=== PATIENT | male | born 1945 | race Caucasian/White ===

== ENCOUNTER 2021-05-12 08:46 | Emergency (ER) | payer MEDICARE, BC ==
[2021-05-12] MEDS ORDERED: Ondansetron 4 MG/2 ML SDV IVPUSH ONE (09:13)
[2021-05-12] MEDS ORDERED: Lactated Ringers 1,000 ML IV ONE (09:13)
[2021-05-12] MEDS: Sodium Chloride 0.9% 10 ML Syringe FLUSH PRN ×3 (09:33→10:51)
[2021-05-12 09:52] LABS: CHLORIDE,CL 101 mmol/L (98-107); SODIUM,NA 135 mmol/L (136-145)
[2021-05-12 09:53] LABS: ANION GAP 11.5 meq/L (7-15)
--- NOTE | 2021-05-12 10:17 | EDM.PDOC ---
ED HPI GENERAL MEDICAL PROBLEM - General Chief Complaint: General Stated Complaint: COVID, nausea, fevers, fatigue Time Seen by Provider: 05/12/21 09:12 Source of Information: Reports: Patient - History of Present Illness INITIAL COMMENTS - FREE TEXT/NARRATIVE: Vance is a 75 y/o male who comes to the ER with complaints of GI upset. He had a +COVID test on 04-30-2021, but had sx a few days prior. He is pretty sure he got the virus from his grandkids as he watched them the Wednesday before. He has been home managing his symptoms, but the last couple days he has had a an upset stomach and nausea, no vomiting, but lots of diarrhea. Reports if he eats, anything goes right through him. No fever. He has been congested with lots of nasal drainage and only coughing when the drainage runs down the back of his throat. - Related Data Allergies Allergy/AdvReac Type Severity Reaction Status Date / Time No Known Allergies Allergy Verified 05/12/21 08:47 Home Meds: Home Meds Finasteride [Proscar] 1 tab PO BEDTIME 05/12/21 [History] Naproxen Sodium [Aleve] 1 tab PO BEDTIME PRN 05/12/21 [History] Ondansetron [Ondansetron ODT] 4 mg PO Q6H PRN #30 tab.rapdis 05/12/21 [Rx] Terazosin [Hytrin] 2 cap PO BEDTIME 05/12/21 [History] Past Medical History Genitourinary History: Reports: Prostate Disorder - Past Surgical History Musculoskeletal Surgical History: Reports: Hip Replacement Social & Family History - Tobacco Use Tobacco Use Status *Q: Former Tobacco User Used Tobacco, but Quit: Yes Month/Year Tobacco Last Used: 1983 Second Hand Smoke Exposure: No - Caffeine Use Caffeine Use: Reports: Coffee - Recreational Drug Use Recreational Drug Use: No ED ROS GENERAL - Review of Systems Review Of Systems: See Below Constitutional: Reports: Malaise, Fatigue HEENT: Reports: Other (Nasal drainage) Respiratory: Reports: Cough (occasional) Cardiovascular: Reports: No Symptoms Endocrine: Reports: No Symptoms GI/Abdominal: Reports: Abdominal Pain, Diarrhea, Decreased Appetite, Nausea : Reports: No Symptoms Musculoskeletal: Reports: No Symptoms Skin: Reports: No Symptoms Neurological: Reports: No Symptoms Psychiatric: Reports: No Symptoms Hematologic/Lymphatic: Reports: No Symptoms Immunologic: Reports: No Symptoms ED EXAM, GENERAL - Physical Exam Exam: See Below General Appearance: Alert, WD/WN, No Apparent Distress, Other (Elderly male, loo ks pretty good.) Eye Exam: Bilateral Eye: PERRL Ears: Normal External Exam, Normal Canal, Hearing Grossly Normal Nose: Normal Inspection, Normal Mucosa Throat/Mouth: Normal Inspection, Normal Lips, Normal Voice Head: Atraumatic, Normocephalic Neck: Normal Inspection, Supple Respiratory/Chest: No Respiratory Distress Cardiovascular: Normal Peripheral Pulses, Regular Rate, Rhythm, No Murmur GI/Abdominal: Normal Bowel Sounds, Soft, Non-Tender (Male) Exam: Deferred Rectal (Males) Exam: Deferred Back Exam: Normal Inspection Extremities: Normal Inspection, Normal Range of Motion, No Pedal Edema, Normal Capillary Refill Neurological: Alert, Oriented, CN II-XII Intact, Normal Cognition, Normal Gait Psychiatric: Normal Affect, Normal Mood Skin Exam: Warm, Dry, Intact, Normal Color Lymphatic: No Adenopathy Course - Vital Signs Text/Narrative:: 09 The patient was seen by the GLOBAL POSITION SYSTEM TECHNICIAN. Labs and CXR ordered. He was given a liter of LR and Zofran 4mg IVP. 1003 CXR reviewed. Note Mg=1.7, will given MagSO4 1gm IVP now along with IV fluids. CBC WBC=3.8, Aet=907. CMP Kxlgym=058, Manager Exchange=1.23, Kgjdkvl=211. UA pending. Labs overall stable and consistent with COVID presentation. 1045 Still nauseated, Compazine 10mg IVP ordered. IV fluids continue along with Magnesium. Will continue IV fluids until pt can void. 1225 UA reviewed. Patient feeling better now. Second liter of IV fluids infusing, but he has voided twice so will d/c. GLOBAL POSITION SYSTEM TECHNICIAN discussed patient eligibility for Monoclonal Antibodies, due to older age (>65 years of age) and he declines at this time. Patient is ready to go home to rest. [facility]. Written instructions were given and he left the ER in stable condition. Last Recorded V/S: Last Vital Signs Temp 37.0 C 05/12/21 08:52 Pulse 82 05/12/21 08:52 Resp 24 H 05/12/21 08:52 BP 147/92 H 05/12/21 08:52 Pulse Ox 96 05/12/21 08:52 - Orders/Labs/Meds Orders: Active Orders 24 hr Category Date Time Status Chest 1V Frontal [CR] Stat Exams 05/12/21 09:13 Ordered UA RFX KAITLIN AND CULT IF INDIC [URIN] Stat Lab 05/12/21 09:13 Ordered Lactated Ringers [Ringers, Lactated] 1,000 ml Med 05/12/21 09:13 Ordered IV .BOLUS Sodium Chloride 0.9% [Saline Flush] Med 05/12/21 09:13 Ordered 10 ml FLUSH ASDIRECTED PRN Saline Lock Insert [OM.PC] Stat Oth 05/12/21 09:13 Ordered Medication Orders Lactated Ringer's (Ringers, Lactated) 1,000 mls @ 999 mls/hr IV .BOLUS ONE Stop: 05/12/21 10:13 Last Admin: 05/12/21 09:33 Dose: 999 mls/hr Documented by: HEIDI Sodium Chloride (Sodium Chloride 0.9% 10 Ml Syringe) 10 ml FLUSH ASDIRECTED PRN PRN Reason: Keep Vein Open Last Admin: 05/12/21 09:33 Dose: 10 ml Documented by: HEIDI Labs: Laboratory Tests 05/12/21 05/12/21 Range/Units 09:25 09:25 WBC 3.8 L (4.0-10.2) K/uL RBC 4.56 (4.33-5.41) M/uL Hgb 14.0 (13.1-16.8) g/dL Hct 39.7 (39.0-49.0) % MCV 87.1 (84.0-98.0) fL MCH 30.7 (28.2-33.3) pg MCHC 35.3 (31.7-36.0) g/dL RDW 12.9 (11.2-14.1) % Plt Count 118 L (150-350) K/uL Neut % (Auto) 70.9 (45.0-80.0) % Lymph % (Auto) 19.0 (10.0-50.0) % [place] % (Auto) 9.5 (2.0-14.0) % Eos % (Auto) 0.3 (0.0-5.0) % Baso % (Auto) 0.3 (0.0-2.0) % Neut # (Auto) 2.68 (1.40-7.00) K/uL Lymph # (Auto) 0.72 (0.50-3.50) K/uL [place] # (Auto) 0.36 (0.00-1.00) K/uL Eos # (Auto) 0.01 (0.00-0.50) K/uL Baso # (Auto) 0.01 (0.00-0.20) K/uL Sodium 135 L (136-145) mmol/L Potassium 4.2 (3.5-5.1) mmol/L Chloride 101 (98-107) mmol/L Carbon Dioxide 26.7 (21.0-32.0) mmol/L Anion Gap 11.5 (7-15) meq/L BUN 15 (7-18) mg/dL Creatinine 1.23 H (0.51-1.17) mg/dL Est Cr Clr Drug Dosing TNP Estimated GFR (MDRD) 57 mL/min Glucose 110 H (70-99) mg/dL Calcium 8.3 L (8.5-10.1) mg/dL Magnesium 1.7 L (1.8-2.4) mg/dL Total Bilirubin 0.5 (0.2-1.0) mg/dL AST 23 (15-37) U/L ALT 26 (12-78) U/L Alkaline Phosphatase 72 (46-116) IU/L Total Protein 6.6 (6.4-8.2) g/dL Albumin 3.3 L (3.4-5.0) g/dL Amylase 51 (25-115) U/L Lipase 142 (73-393) U/L Meds: Medications Generic Name Dose Route Start Last Admin Trade Name Freq PRN Reason Stop Dose Admin Lactated Ringer's 1,000 mls @ 999 mls/hr 05/12/21 09:13 05/12/21 09:33 Ringers, Lactated IV 05/12/21 10:13 999 mls/hr .BOLUS ONE Administration Sodium Chloride 10 ml 05/12/21 09:13 05/12/21 09:33 Sodium Chloride 0.9% 10 Ml Syringe FLUSH 10 ml ASDIRECTED PRN Administration Keep Vein Open Discontinued Medications Generic Name Dose Route Start Last Admin Trade Name Lucius PRN Reason Stop Dose Admin Ondansetron HCl 4 mg 05/12/21 09:13 05/12/21 09:33 Ondansetron 4 Mg/2 Ml Sdv IVPUSH 05/12/21 09:14 4 mg ONETIME ONE Administration - Radiology Interpretation Free Text/Narrative:: XR Chest 1V-some perihilar thickening in the right lung and blurred cardiac silhouette (See final report) Departure - Departure Time of Disposition: 12:28 Disposition: Home, Self-Care 01 Condition: Good Clinical Impression: COVID-19, Diarrhea due to COVID-19, Nausea - Discharge Information *PRESCRIPTION DRUG MONITORING PROGRAM REVIEWED*: Not Applicable *COPY OF PRESCRIPTION DRUG MONITORING REPORT IN PATIENT HECTOR: Not Applicable Prescriptions: Ondansetron [Ondansetron ODT] 4 mg PO Q6H PRN #30 tab.rapdis PRN Reason: Nausea Instructions: Nausea, Adult, Symptoms of Coronavirus - [facility] (11/11/2020), 10 Things You Can Do to Manage Your COVID-19 Symptoms at Home - [facility] (03/20/2020) Referrals: Mitra Blanc, [employer] [Primary Care Provider] - Additional Instructions: -Zofran (Ondanestron) ODT 4mg oral every 6 hours as needed for nausea #20 (Rx) -Rest -Stay well hydrated -Clear liquids, advance your diet as can tolerate -If your diarrhea persists more than a week, you need to be seen in the clinic for further treatment. -See COVID guidelines attached and call with any questions. Monitor for worsening of symptoms and report. -Follow up with your Primary Care Provider if symptoms not improving or return to the ER Sepsis Event Note (ED) - Evaluation Sepsis Screening Result: Possible Sepsis Risk - Focused Exam Vital Signs: Vital Signs Temp Pulse Resp BP Pulse Ox 05/12/21 08:52 37.0 C 82 24 H 147/92 H 96 - Problem List & Annotations (1) COVID-19 SNOMED Code(s): 208183217 Code(s): U07.1 - COVID-19 Status: Acute Current Visit: Yes Onset Date: ~04/30/21 Annotation/Comment:: COVID test positive on 04-30-2021. Has been manageing well at home up until last few days when GI sx worse. (2) Diarrhea due to COVID-19 SNOMED Code(s): 267665282 Code(s): U07.1 - COVID-19; A08.39 - OTHER VIRAL ENTERITIS Status: Acute Current Visit: Yes (3) Nausea SNOMED Code(s): 758260574 Code(s): R11.0 - NAUSEA Status: Acute Current Visit: Yes Annotation/Comment:: -Labs stable today other than mildly low Mag leve at 1.7. MagSO4 1gm givne for replacement. Also had Zofran, Compazine, and IV fluids. -Discharge to home with Zofran ODT for prn use. - My Orders Last 24 Hours: My Active Orders 05/12/21 09:13 Chest 1V Frontal [CR] Stat UA RFX KAITLIN AND CULT IF INDIC [URIN] Stat Lactated Ringers [Ringers, Lactated] 1,000 ml IV .BOLUS Sodium Chloride 0.9% [Saline Flush] 10 ml FLUSH ASDIRECTED PRN Saline Lock Insert [OM.PC] Stat - Assessment/Plan Last 24 Hours: My Active Orders 05/12/21 09:13 Chest 1V Frontal [CR] Stat UA RFX KAITLIN AND CULT IF INDIC [URIN] Stat Lactated Ringers [Ringers, Lactated] 1,000 ml IV .BOLUS Sodium Chloride 0.9% [Saline Flush] 10 ml FLUSH ASDIRECTED PRN Saline Lock Insert [OM.PC] Stat Plan: See below
[2021-05-12] MEDS ORDERED: Magnesium Sulfate/D5W 1 GM/100 ML Premix Bag IV STA (10:19)
[2021-05-12] MEDS ORDERED: Magnesium Sulfate/D5W 1 GM/100 ML BAG IV ONE (10:30)
[2021-05-12] MEDS ORDERED: Prochlorperazine 10 MG/2 ML SDV IV ONE (10:47)
[2021-05-12] MEDS ORDERED: Sodium Chloride 0.9% 1,000 ML IV ONE (10:48)
[2021-05-12 12:35] VITALS: PULSE 80
[2021-05-12 13:53] VITALS: BP 157/68
== END 2021-05-12 13:05 | disposition home or self-care (01) ==
LOC: LL.ED 08:46
DX: U07.1 COVID-19 (principal); R11.0 Nausea; R19.7 Diarrhea, unspecified; Z87.891 Personal history of nicotine dependence; Z79.899 Other long term (current) drug therapy
CPT/HCPCS: 36415; 71045; 80053; 81001; 82150; 83690; 83735; 85025; 96365; 96375; 99283; 99284; J0780; J2405; J3475; J7030; J7120